=== PATIENT | male | born 1980 | race Caucasian/White ===

== ENCOUNTER → 2024-08-19 | Outpatient (CLI) | payer BC, SELFPAY ==
--- NOTE | 2024-08-19 14:35 | XR_ITS ---
Examination: CT pelvis without intravenous contrast. 2-D sagittal and coronal reconstructions. Date and time of exam:August 19, 2024, 1449 hrs. Indications: Right inguinal hernia right lower abdominal pain beginning 2 weeks ago CTDI: vol (mGy) :7.19 DLP: (mGycm) : 256 Technique: Multiple 3 mm axial sections of the pelvis have been obtained with the 64 slice high resolution scanner. 2-D sagittal and coronal reconstructions. Low dose protocols were performed. One or more of the following dose reduction techniques were used; automated exposure control, adjustment of the mA and/or KV according to patient size, use of iterative reconstruction technique. Findings: Normal appendix. No bowel obstruction No diverticulitis. Normal seminal vesicles. Transverse prostate dimension 4.5 cm. Contracted urinary bladder. Small fat-containing inguinal hernias. No bowel present in these hernia defects Impression: Small fat-containing bilateral inguinal hernias
== END | disposition home or self-care (01) ==
LOC: CCTX 14:20
PROVIDERS: PCP Student in an Organized Health Care Education/Training Program; Referring Provider Student in an Organized Health Care Education/Training Program; Visit Provider Student in an Organized Health Care Education/Training Program
DX: K40.20 Bilateral inguinal hernia, without obstruction or gangrene, not specified as recurrent (principal)
CPT/HCPCS: 72192

== ENCOUNTER 2025-01-06 06:10 | Day surgery (SDC) | payer OTHER, SELFPAY ==
--- NOTE | 2025-01-05 06:20 | EKG_ITS ---
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
[2025-01-05 09:31] VITALS: BMI 29.9
[2025-01-05 09:56] LABS: Basophils # (Auto) 0.0 Thou/mm3 (0.0-0.2); Basophils % (Auto) 1 % (0-2.5); Eosinophils # (Auto) 0.1 Thou/mm3 (0.0-0.5); Eosinophils % (Auto) 2 % (0-10); Hematocrit 48.6 % (41.0-53.0); Hemoglobin 17.2 g/dL (13.5-16.0); Immature Granulocytes Auto 0.01 Thou/mm3 (0.00-0.00); Lymphocytes # (Auto) 1.3 Thou/mm3 (1.0-4.8); Lymphocytes % (Auto) 25 % (10-50); Mean Corpuscular HGB Conc 35.4 g/dl (31.0-37.0); Mean Corpuscular Hemoglobin 33.5 pg (25.0-35.0); Mean Corpuscular Volume 95 fL (80-100); Monocytes # (Auto) 0.5 Thou/mm3 (0.0-0.8); Monocytes % (Auto) 9 % (0-12); Neutrophils # (Auto) 3.4 Thou/mm3 (1.8-7.7); Neutrophils % (Auto) 64 % (37-80); Nucleated Red Blood Cell # 0.00 Thou/mm3 (0.00-0.00); Nucleated Red Blood Cell % 0 /100 WBC (0); Platelet Count 163 Thou/mm3 (140-440); RDW Standard Deviation 43.8 fL (35.1-43.9); Red Blood Count 5.14 Miln/mm3 (4.50-5.90); White Blood Count 5.3 Thou/mm3 (3.8-10.6)
[2025-01-05 10:14] LABS: Anion Gap 8 (7-16); BUN/Creatinine Ratio 14 Ratio (12-20); Blood Urea Nitrogen 14 mg/dL (9-23); Calcium 9.7 mg/dL (8.3-10.6); Carbon Dioxide 27.5 mMol/L (20.0-31.0); Chloride 105 mMol/L (98-107); Creatinine (Component) 1.0 mg/dL (0.6-1.3); Estimated Creatinine Clearance 100.1 mL/min (>60); Glucose 99 mg/dL (74-106); Osmolality,Calculated 279 (275-295); Potassium 4.5 mMol/L (3.4-5.1); Sodium 140 mMol/L (136-145); eGFR > 60 See Note
[2025-01-06] VITALS (8 sets, daily range): BP systolic 127–146; BP diastolic 81–97; PULSE 67–83; RESP 16–20; TEMP 36.1–36.5; O2SAT 97–100; BMI 29.8
--- NOTE | 2025-01-06 10:34 | SUR.PHASEI ---
1034: Pt. arrived with oral airway in place, vitals stable, breathing unlabored, no signs of distress, dressing to lower ABD CDI, no active bleed noted, report received from MD Hsieh and Cory WHATLEY.
--- NOTE | 2025-01-06 10:36 | PD.SUROPNT ---
Date of Procedure 01/06/25 Pre Op Diagnosis Bilateral inguinal hernia Post Op Diagnosis Bilateral direct inguinal hernias Procedure Repair of bilateral inguinal hernias with mesh Findings Patient was noted to have direct bilateral inguinal hernias Procedure Description Patient brought into the operating room in supine position. After administration of general endotracheal anesthesia, patient's bilateral groins were shaved, prepped and draped in standard surgical manner. The procedure started on the patient's right side. The right inguinal crease was anesthetized with half percent Marcaine. An approximately 6 cm incision was made and dissection was carried to subcutaneous tissue. The Joel's fascia was divided and the external oblique aponeurosis was opened towards the external ring. The hernia sac and the spermatic cord structures were from the posterior aspect of the external oblique aponeurosis at the level of pubic tubercle. The hernia sac was then meticulously dissected off the spermatic cord structures at the level of internal ring. Patient was noted to have direct right inguinal hernia defect. The defect was closed with interrupted [id number] sutures using 0 Vicryl. The floor of inguinal canal was then reconstructed with ultra Pro proceed mesh. The mesh was secured with running 2-0 Prolene suture. The mesh secured medially to the pubic tubercle, superiorly into the conjoin tendon, inferiorly and to the shelving edge of inguinal ligament, the mesh was placed around the cord structures and tacked under the external oblique aponeurosis laterally. The area was copiously and thoroughly washed and irrigated, all the fluids were suctioned and the suction fluid returned clear. Hemostasis was adequate and satisfactory. External oblique aponeurosis was closed with running 2-0 Vicryl suture, and Joel's fascia was closed with interrupted suture using 3-0 Vicryl. The incision was closed with 4-0 Monocryl in subcutaneous fashion. I then turned my attention to patient's left side. Patient was noted to have direct left inguinal hernia and the procedure was performed in exactly similar fashion. Instruments, needles and sponge counts were reported to be correct ?2. Patient tolerated the procedure well. He was extubated, breathing spontaneously and without difficulty and was transferred to postanesthesia care in stable condition. Anesthesia GETA and local Pathology / specimen None Estimated Blood Loss 20 Condition Stable Disposition PACU Surgeon Vance Valenzuela MD Surgical Staff Operation Date: 01/06/25 08:45 Case Staff Anesthesiologist: Darci Hsieh citrus fruit colorer: Marcia Condon
[2025-01-06] MEDS: HYDROmorphone INJ 2 MG/ML VIAL 0.4 MG IVP ×3 (10:43→11:01)
--- NOTE | 2025-01-06 11:45 | SUR.PHASEII ---
1145: Pt. AAOx4, vitals stable, breathing unlabored, no complaint of pain or nausea, dressings to lower ABD CDI, no active bleed noted, pt. tolerated sips of soda well, pt. ambulated to wheelchair with minimal assist, no complications. Gave discharge instructions to the pt. and his ride, both verbalized understanding and had no further questions. Pt. left with all personal belongings.
== END 2025-01-06 11:45 | disposition home or self-care (01) ==
PROVIDERS: PCP Student in an Organized Health Care Education/Training Program; Referring Provider Surgery; Visit Provider Surgery
PROC: (CPT 49505; principal; 2025-01-06 08:45)
DX: K40.20 Bilateral inguinal hernia, without obstruction or gangrene, not specified as recurrent (principal); Z01.810 Encounter for preprocedural cardiovascular examination
CPT/HCPCS: 49505; 36415; 80048; 85025; 93005; A4217; A4649; C1781; J0131; J0690; J1100; J1171; J1885; J2250; J2405; J2704; J3010; J3490; A9270